=== PATIENT | female | born 1955 | race American Indian/Alaskan Native ===

== ENCOUNTER 2020-09-03 13:49 | Emergency (ER) | payer OTHER ==
[~2020-09-03] VITALS: Ht 157.5 cm; Wt 72.1 kg
[2020-09-03 14:20] VITALS: BP_SYST 149
[2020-09-03 16:20] LABS: BASOPHILS # (AUTO) 0.1 K/uL (0.0-0.2); BASOPHILS % (AUTO) 0.9 % (0.0-2.0); EOSINOPHILS # (AUTO) 0.2 K/uL (0.0-0.4); EOSINOPHILS % (AUTO) 2.7 % (0.0-4.0); HEMATOCRIT 43.8 % (36-48); HEMOGLOBIN 14.8 g/dL (12.0-16.0); LYMPHOCYTES # (AUTO) 2.7 K/uL (1.0-5.5); LYMPHOCYTES % (AUTO) 38.6 % (20.5-51.5); MEAN CORPUSCULAR HEMOGLOBIN 31 pg (27-31); MEAN CORPUSCULAR HGB CONC 34 % (32-36); MEAN CORPUSCULAR VOLUME 93 fL (79.0-98.0); MONOCYTES # (AUTO) 0.5 K/uL (0.0-1.0); MONOCYTES % (AUTO) 6.6 % (1.7-9.3); NEUTROPHILS # (AUTO) 3.5 K/uL (1.8-7.7); NEUTROPHILS % (AUTO) 51.2 % (40.0-70.0); PLATELET COUNT (AUTO) 182 K/uL (130-430); RED BLOOD CELL COUNT(AUTO) 4.72 MIL/uL (4.2-6.2); RED CELL DISTRIBUTION WIDTH 13.3 % (9.0-15.0); WHITE BLOOD COUNT (AUTO) 6.9 K/uL (4.8-10.8)
[2020-09-03 16:42] LABS: CALCIUM 8.5 mg/dL (8.4-11.0); CREATININE 0.91 mg/dL (0.55-1.30); POTASSIUM 3.7 mmol/L (3.5-5.1)
[2020-09-03 16:48] LABS: ALBUMIN 4.2 g/dL (3.4-4.8); TOTAL BILIRUBIN 0.6 mg/dL (0.0-1.0)
[2020-09-03 16:53] LABS: PROTHROMBIN TIME 9.9 SECS (9.5-12.5)
[2020-09-03] MEDS ORDERED: HYDR-4272 PO (17:49)
[2020-09-03] MEDS ORDERED: IBUP-1969 PO (17:49)
[2020-09-03 17:57] VITALS: BP_SYST 140
== END 2020-09-03 17:55 | disposition home or self-care (01) ==
LOC: SED 13:49
DX: R10.31 Right lower quadrant pain (principal); I10 Essential (primary) hypertension; Z79.899 Other long term (current) drug therapy
CPT/HCPCS: 36415; 80053; 82150-TC; 83605; 83690-TC; 85025; 85610-TC; 85730-TC; 93971; 99285

== ENCOUNTER 2021-04-26 11:22 | Emergency (ER) | payer OTHER, SELFPAY ==
[~2021-04-26] VITALS: Ht 157.5 cm; Wt 70.3 kg
[~2021-04-26 11:22] MED LIST: HYDR-4272 PO; IBUP-1969 PO
[2021-04-26 11:32] VITALS: BP_SYST 146
[2021-04-26] MEDS ORDERED: CASIRIVIMAB 600 MG, IMDEVIMAB 600 MG in NS 250 ML IV ONE (12:30)
[2021-04-26 14:55] VITALS: BP_SYST 123
== END 2021-04-26 14:55 | disposition home or self-care (01) ==
LOC: SED 11:22
DX: U07.1 COVID-19 (principal); I10 Essential (primary) hypertension; Z79.899 Other long term (current) drug therapy
CPT/HCPCS: 36415; 87426; 99284; J7050; M0243; Q0243